=== PATIENT | female | born 1950 | race Hispanic/Latino ===

== ENCOUNTER 2019-03-12 12:17 | Emergency (ER) | payer MEDICARE, OTHER ==
[~2019-03-12] VITALS: Ht 165.1 cm; Wt 68.0 kg
[~2019-03-12 12:17] MED LIST: Calcium PO; MULTI-VITAMIN1 EACH PO; Magnesium PO; POTASSIUM CITR10 MEQ PO; Vit E PO
--- OUTSIDE RECORDS SUMMARY | 2019-03-12 12:20 | XMS REPORT | Summary of Care ---
Author Author [facility] [place] Organization [facility] [place] Address Unknown Phone Unavailable Encounter [facility](FIN) [id number] Date(s): 12/09/17 - 12/09/[address] [facility] [place] [address] [place] [address] [phone] Discharge Disposition: Home or Self Care Attending Physician: Quyen Berumen MD Vital Signs No data available for this section Problem List No data available for this section Allergies, Adverse Reactions, Alerts No data available for this section Medications No data available for this section Results No data available for this section Immunizations No data available for this section Procedures No data available for this section Social History No data available for this section Assessment and Plan No data available for this section
--- OUTSIDE RECORDS SUMMARY | 2019-03-12 12:20 | XMS REPORT ---
Author Author Hillary Chau Organization [employer] Address Unknown Phone Unavailable Care Team Providers Care Marine Fitter Name Role Phone Hillary Chau CP Unavailable Allergies, Adverse Reactions, Alerts Substance Reaction Event Type N.K.D.A. Info Not Available Non Drug Allergy Problems Problem Type Condition Code Onset Dates Condition Status Assessment Pain in right knee M25.561 Active Assessment Pain in left knee M25.562 Active Assessment SHUKRI positive R76.8 Active Assessment Counseling NOS Z71.9 Active Medications No Known Medications Vital Signs Date/Time: October 07, 2017 Height 62 in Blood Pressure Diastolic 89 mm Hg Blood Pressure Systolic 138 mm Hg Weight 151.0 lbs Results No Known Results Summary Purpose [employer] Submission
--- OUTSIDE RECORDS SUMMARY | 2019-03-12 12:20 | XMS REPORT | Continuity of Care Document ---
Author Author [employer] Organization [employer] Address Unknown Phone Unavailable Care Team Providers Care Reclaimer Name Role Phone [employer] Unavailable Unavailable Problems Problem Status Onset Date Classification Date Reported Comments Source M54.5 - LOW BACK PAIN Active 12/09/2017 [facility] [place] LOWER BACK PAIN LUMBAR RADIC Active 09/18/2017 [facility] [place] Pain in right knee Active Diagnosis 10/22/2017 Hillary Najam Pain in left knee Active Diagnosis 10/22/2017 Hillary Najam SHUKRI positive Active Diagnosis 10/22/2017 Hillary Najam Counseling NOS Active Diagnosis 10/22/2017 Hillary Najam Anti-TPO antibodies present Active Diagnosis 10/22/2017 Hillary Najam Medications Medication Details Route Status Patient Instructions Ordering Provider Order Date Source Meloxicam 1 tab(s) with food as needed Orally Active 15 MG Orally Once a day Najam 10/21/2017 Hillary Najam Allergies, Adverse Reactions, Alerts Substance Category Reaction Severity Reaction type Status Date Reported Comments Source N.K.D.A. Adverse Reaction Info Not Available Adverse Reaction Active 10/21/2017 Hillary Najam Immunizations No Data Provided for This Section Results No Data Provided for This Section Pathology Reports No Data Provided for This Section Diagnostic Reports Report Value Date Source Spine lumbar 2 or 3 views DX Exam: Spine lumbar 2 or 3 views DX Reason for Exam: - low back pain Comparison Exam: None Discussion: 5 non rib-bearing lumbar vertebral bodies are seen. Vertebral body heights are maintained. No spondylolisthesis or scoliosis. Mild degenerative changes seen within the lower lumbar spine. No suspicious osteoblastic or osteolytic lesions. Note that a lumbar spine x-ray cannot rule out ligamentous injuries or spinal cord abnormalities. No dilated loops of bowel within the visualized portions of the abdomen and pelvis. Impression: 1. Mild degenerative changes seen within the lower lumbar spine. 12/09/2017 [facility] [place] Consultation Notes No Data Provided for This Section Discharge Summaries No Data Provided for This Section History and Physicals No Data Provided for This Section Vital Signs Vital Sign Value Date Comments Source Height 62 10/21/2017 Hillary Najam Diastolic (mm Hg) 84 10/21/2017 Hillary Najam Systolic (mm Hg) 133 10/21/2017 Hillary Najam Weight 151.6 10/21/2017 Hillary Najam Height 62 10/07/2017 Hillary Najam Diastolic (mm Hg) 89 10/07/2017 Hillary Najam Systolic (mm Hg) 138 10/07/2017 Hillary Najam Weight 151.0 10/07/2017 Hillary Najam Encounters Location Location Details Encounter Type Encounter Number Reason For Visit Attending Provider ADM Date DC Date Status Source [facility] [id number] Travis Murillo 10/08/2017 11/07/2017 [facility] [place] [facility] [id number] Quyen Berumen 12/09/2017 12/10/2017 [facility] Procedures No Data Provided for This Section Assessment and Plan No Data Provided for This Section Plan of Care No Data Provided for This Section Social History Social History Date Source No data available for this section 12/10/2017 [facility] No data available for this section 11/07/2017 [facility] Family History No Data Provided for This Section Advance Directives No Data Provided for This Section Functional Status No Data Provided for This Section
--- OUTSIDE RECORDS SUMMARY | 2019-03-12 12:20 | XMS REPORT ---
Author Author Hillary Chau Organization [employer] Address Unknown Phone Unavailable Care Team Providers Care Leave Coordinator Name Role Phone Hillary Chau CP Unavailable Allergies, Adverse Reactions, Alerts Substance Reaction Event Type N.K.D.A. 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
--- OUTSIDE RECORDS SUMMARY | 2019-03-12 12:20 | XMS REPORT | Summary of Care ---
Author Author [facility] Address Unknown Phone Unavailable Encounter [facility]) [id number] Date(s): 10/08/17 - 11/06/17 [facility] Discharge Disposition: Home or Self Care Attending Physician: Travis Murillo MD Vital Signs No data available for [...]
--- NOTE | 2019-03-12 13:31 | Diagnostic Imaging Report ---
EXAMINATION: Head and face CT without contrast. HISTORY: Status post fall, right-sided facial pain COMPARISON: None. TECHNIQUE: Multidetector axial images were obtained without contrast from the foramen magnum to the vertex and over the face. The images were reconstructed using brain and bone algorithms. Thin section brain images were reformatted into coronal and sagittal planes. Dose modulation, iterative reconstruction, and/or weight based adjustment of the mA/kV was utilized to reduce the radiation dose to as low as reasonably achievable. Head CT findings: Skull: No lytic or blastic lesions. No fractures. Parenchyma: Normal. No mass, hemorrhage or CT evidence of acute vascular insult. Brain volume: Normal for age. Ventricles: No hydrocephalus or displacement. Arteries: No density suggestive of thrombus. Dural sinuses: No abnormal density. Extra-axial spaces: No abnormal density. Foramen magnum: No mass, Chiari malformation, or basilar invagination. Sella: Mild enlarged, partially empty, mostly CSF filled. Paranasal/mastoid sinuses: Imaged portions unremarkable. Face CT findings: Bones: Unremarkable. Facial soft tissues: Unremarkable. Orbits contents: Unremarkable. Paranasal sinuses and drainage pathways: Clear and patent. Nasal septum and nasal cavities: S-shaped with right posterior and left anterior deviation Anatomic variations: No significant anatomic variations. Teeth: No acute abnormality of the visualized teeth. IMPRESSION: Head CT: No acute posttraumatic intracranial abnormalities, particularly no hemorrhagic. Face CT: No facial fractures. Signed by: Dr. Kesha Limon M.D. on 03/12/2019 1:28 PM
--- NOTE | 2019-03-12 13:40 | Diagnostic Imaging Report ---
EXAMINATION: CT of the cervical spine HISTORY: Status post fall, right-sided facial pain. Neck pain COMPARISON: None available TECHNIQUE: Multidetector helical axial images were obtained without contrast from the foramen magnum to T1. The images were reconstructed using bone and soft tissue algorithms and were viewed in axial, sagittal and coronal planes. Dose modulation, iterative reconstruction, and/or weight based adjustment of the mA/kV was utilized to reduce the radiation dose to as low as reasonably achievable. FINDINGS: Alignment: Normal alignment and lordosis Soft tissues: Overall hypoattenuating thyroid gland, which may represent sequela from prior thyroiditis. Vertebrae: Normal height and density. No acute fracture, infection or neoplasm Degenerative changes: C1-C2: Normal C2-C3: Bilateral facet processes without canal or foramina. C3-C4: Prominent facet arthrosis on the left, minimal left foraminal narrowing. C4-C5: Prominent facet arthroses on the right. Moderately severe right foraminal stenoses. C5-C6: Facet arthropathy mainly on the right without significant stenoses. C6-C7: Disc osteophyte complex formation, bilateral uncovertebral arthrosis mainly on the left and right facet arthroses. Moderate left foraminal stenoses. C7-T1: Normal IMPRESSION: 1. No acute cervical spine postraumatic abnormalities. 2. Multilevel chronic degenerative changes of detail above. Note: Acute postraumatic spinal cord, vascular or ligamentous injuries cannot adequately be assessed by CT. Signed by: Dr. Kesha Limon M.D. on 03/12/2019 1:37 PM
--- NOTE | 2019-03-12 14:30 | Diagnostic Imaging Report ---
Exam: Right forearm radiographs-2 views; right elbow radiographs-3 views History: Status post fall. Comparison: None. Findings: There is a minimally displaced fracture of the radial head with intra-articular extension. There is an elbow joint effusion. Impression: Minimally displaced intra-articular fracture of the radial head. Signed by: Dr. Ike Valdez MD on 03/12/2019 2:27 PM
--- NOTE | 2019-03-12 14:31 | Diagnostic Imaging Report ---
Exam: Left knee radiographs-3 views History: Status post fall. Comparison: None. Findings: No evidence of acute fracture, malalignment, or soft tissue abnormality. No suprapatellar joint effusion. The joint spaces are preserved. Impression: No acute radiographic abnormality. Signed by: Dr. Ike Valdez MD on 03/12/2019 2:28 PM
== END 2019-03-12 15:23 | disposition home or self-care (01) ==
LOC: ER 12:17
DX: S52.181A Other fracture of upper end of right radius, initial encounter for closed fracture (principal); S06.890A Other specified intracranial injury without loss of consciousness, initial encounter; W01.0XXA Fall on same level from slipping, tripping and stumbling without subsequent striking against object, initial encounter; Y92.009 Unspecified place in unspecified non-institutional (private) residence as the place of occurrence of the external cause
CPT/HCPCS: 70450; 70486; 72125; 99284

== ENCOUNTER 2023-01-01 10:21 | Emergency (ER) | payer MEDICARE, OTHER ==
[~2023-01-01] VITALS: Ht 165.1 cm; Wt 68.0 kg
[2023-01-01 10:25] VITALS: O2SAT 97
[2023-01-01] MEDS ORDERED: SODIUM CHLORIDE 0.9% 1000ML 1,000 ML IV STA (10:44)
[2023-01-01] MEDS ORDERED: SODIUM CHLORIDE 0.9% 1000ML 1,000 ML ONE (10:54)
[2023-01-01] MEDS ORDERED: DIATRIZOATE MEGL/DIATRIZOA SOD 30 ML BTL PO ONE (10:58)
[2023-01-01] MEDS ORDERED: DICYCLOMINE HCL 20 MG/2 ML VIAL IM ONE (11:00)
[2023-01-01 11:04] LABS: BASOPHILS % 0.2 % (0.0-1.0); EOSINOPHILS % 0.2 % (0.0-6.0); HEMATOCRIT 39.1 % (34.2-44.1); HEMOGLOBIN 13.7 g/dL (12.0-16.0); LYMPHOCYTES # (AUTO) 1.4 (1.0-3.2); LYMPHOCYTES % 16.6 % (18.0-39.1); MEAN CORPUSCULAR HEMOGLOBIN 31.6 pg (28-32); MEAN CORPUSCULAR VOLUME 90.1 fL (81-99); MONOCYTES # (AUTO) 0.6 (0.2-0.8); MONOCYTES % 7.2 % (4.4-11.3); NEUTROPHILS # (AUTO) 6.5 (2.1-6.9); NEUTROPHILS % 75.6 % (38.7-80.0); PLATELET COUNT 231 x10e3/uL (140-360); RED BLOOD COUNT 4.34 x10e6/uL (3.6-5.1); RED CELL DISTRIBUTION WIDTH 13.1 % (11.7-14.4)
[2023-01-01 11:24] LABS: INR 1.01; PROTHROMBIN TIME 13.8 seconds (11.9-14.5)
[2023-01-01 11:25] LABS: ALANINE AMINOTRANSFERASE 19 IU/L (0-55); ALKALINE PHOSPHATASE 69 IU/L (40-150); ANION GAP 14.7 mmol/L (8-16); BLOOD UREA NITROGEN 12 mg/dL (7-26); BUN/CREATININE RATIO 18 (6-25); CALCIUM 9.5 mg/dL (8.4-10.2); CARBON DIOXIDE 24 mmol/L (22-29); CHLORIDE 103 mmol/L (98-107); CREATININE, SERUM 0.68 mg/dL (0.57-1.11); GLUCOSE 98 mg/dL (74-118); LIPASE 9 U/L (8-78); MAGNESIUM 1.9 MG/DL (1.3-2.1); PARTIAL THROMBOPLASTIN TIME 29.9 seconds (23.8-35.5); POTASSIUM 3.7 mmol/L (3.5-5.1); SODIUM 138 mmol/L (136-145)
[2023-01-01] MEDS ORDERED: IOPAMIDOL 370 MG/ML 100 ML INFUS..BTL INJ ONE (11:53)
[2023-01-01] MEDS ORDERED: DICYCLOMINE HCL20 MG PO (12:52)
[2023-01-01] MEDS ORDERED: AMOX TR-K CLV1 EAC2 PO (12:52)
== END 2023-01-01 13:13 | disposition home or self-care (01) ==
LOC: ER 10:38
DX: R10.32 Left lower quadrant pain (principal); K57.32 Diverticulitis of large intestine without perforation or abscess without bleeding; K42.9 Umbilical hernia without obstruction or gangrene
CPT/HCPCS: 36415; 74177; 80053; 83690; 83735; 84484; 85025; 85610; 85730; 87086; 87186; 99284; C9113; J0500; J7030; Q9963; Q9967

== ENCOUNTER 2024-03-18 10:00 | Outpatient (RCR) | payer MEDICARE ==
[~2024-03-18 10:00] MED LIST changes: +AMOX TR-K CLV1 EAC2 PO; +DICYCLOMINE HCL20 MG PO
== END 2024-03-19 ==
LOC: PT 10:00
PROVIDERS: ATTEND Podiatrist Foot & Ankle Surgery
DX: S86.312D Strain of muscle(s) and tendon(s) of peroneal muscle group at lower leg level, left leg, subsequent encounter (principal); R26.89 Other abnormalities of gait and mobility; M62.81 Muscle weakness (generalized); M79.672 Pain in left foot; M25.672 Stiffness of left ankle, not elsewhere classified

== ENCOUNTER 2024-03-28 10:50 | Outpatient (RCR) | payer MEDICARE | END 2024-04-18 | LOC: PT 10:50 | PROVIDERS: ATTEND Podiatrist Foot & Ankle Surgery | DX: M76.72 Peroneal tendinitis, left leg (principal) ==

== ENCOUNTER 2025-01-26 09:52 | Emergency (ER) | payer MEDICARE ==
[~2025-01-26] VITALS: Ht 162.6 cm; Wt 68.0 kg
[2025-01-26 09:55] VITALS: TEMP 98.4
[2025-01-26] MEDS: DEXAMETHASONE SOD PHOS 10 MG/1 ML VIAL IM ONE (11:54)
[2025-01-26] MEDS ORDERED: ULTRAM 50MG50 MG PO (12:14)
[2025-01-26] MEDS ORDERED: PREDNISONE20 MG PO (12:14)
[2025-01-26 12:33] VITALS: PULSE 68; RESP 16
[2025-01-26 13:06] VITALS: BP 149/92; O2SAT 98
== END 2025-01-26 12:30 | disposition home or self-care (01) ==
LOC: ER 10:53
DX: M54.32 Sciatica, left side (principal); E03.9 Hypothyroidism, unspecified; M21.379 Foot drop, unspecified foot
CPT/HCPCS: 72131; 72192; 99283; J1100